=== PATIENT | female | born 1975 | race Two or more races ===

== ENCOUNTER 2019-04-16 18:08 | Emergency (ER) | payer OTHER ==
[2019-04-16] MEDS ORDERED: CYCLOBENZAPRINE 10 MG TABLET PO STA (19:02)
[2019-04-16] MEDS ORDERED: MELOXICAM 7.5 MG TABLET PO STA (19:02)
--- NOTE | 2019-04-16 19:14 | ED Physician Documentation ---
History of Present Illness - Stated complaint Stated Complaint: LEFT SHOULDER PX - Chief complaint Chief Complaint: Trauma Ext - History obtained from History obtained from: Patient, Family - History of Present Illness Timing: How many weeks ago (1) Pain level max: 8 Pain level now: 6 - Additonal information Additional information: L clavicle pain x 1 week. no injury. She does work in a [employer] and does regularly hold a phone in between her shoulder and her ear when she is typing on a keyboard and talking on the phone. She does not recall any heavy lifting. No numbness or tingling. Pain is not on the shoulder. It is rather on the sternoclavicular head of the sternocleidomastoid muscle. No fevers. No falls. Worse with movement and better with rest Review of Systems Constitutional: denies: Fever, Chills Respiratory: denies: Cough GI: denies: Nausea, Vomiting, Diarrhea Skin: denies: Rash Musculoskeletal: denies: Back pain Neurologic: denies: Headache PD PAST MEDICAL HISTORY - Past Medical History Past Medical History: No - Past Surgical History Past Surgical History: No - Present Medications Home Medications: Ambulatory Orders Medication Instructions Recorded Confirmed Cyclobenzaprine [Flexeril] 10 mg PO TID PRN #20 tablet 04/16/19 Hydrocodone/Acetaminophen 1 - 2 each PO Q6H PRN #14 tablet 04/16/19 [Hydrocodon-Acetaminophen 5-325] Meloxicam [Mobic] 15 mg PO DAILY PRN #20 tablet 04/16/19 - Allergies Allergies/Adverse Reactions: Allergies Allergy/AdvReac Type Severity Reaction Status Date / Time No Known Drug Allergies Allergy Verified 04/16/19 18:18 - Living Situation Living Situation: reports: With family Living Arrangement: reports: At home - Social History Does the pt have substance abuse?: No PD ED PE NORMAL - Vitals Vital signs reviewed: Yes - General General: Alert and oriented X 3, No acute distress - HEENT HEENT: Moist mucous membranes - Neck Neck: Supple, no meningeal sign - Cardiac Cardiac: RRR - Respiratory Respiratory: No respiratory distress, Clear bilaterally - Back Back: No CVA TTP - Derm Derm: Warm and dry - Extremities Extremities: Other (L clavicle - Tender to palpation over the medial aspect of the clavicle. There is no deformity or swelling. She is also tender along the sternoclavicular head of the sternocleidomastoid muscle. No tenderness over the shoulder. No pain with passive range of motion. Neurovascularly intact.) - Neuro Neuro: Alert and oriented X 3 Results - Vitals Vitals: Vital Signs - 24 hr 04/16/19 04/16/19 18:18 20:15 Temperature 36.9 C 37.2 C Heart Rate 80 86 Respiratory 15 20 Rate Blood Pressure 132/95 H 122/76 O2 Saturation 98 96 Oxygen O2 Source Room air - Rads (name of study) L clavicle xray Radiology: Prelim report reviewed, EMP read contemporaneously, See rad report (normal.) PD MEDICAL DECISION MAKING - ED course Complexity details: reviewed results, re-evaluated patient, considered differential, d/w patient ED course: Patient with what appears to be muscular pain of the sternocleidomastoid. Will place on muscle relaxants and pain medication for home. She is well-appearing, nontoxic. Afebrile. Likely muscle spasm. No evidence of carotid dissection, acute coronary syndrome, pulmonary embolus, tumors. Patient counseled regarding signs and symptoms for which I believe and urgent re-evaluation would be necessary. Patient with good understanding of and agreement to plan and is comfortable going home at this time This document was made in part using voice recognition software. While efforts are made to proofread this document, sound alike and grammatical errors may occur. Departure - Departure Disposition: 01 Home, Self Care Clinical Impression: Neck muscle strain Qualifiers: Encounter type: initial encounter Qualified Code(s): S16.1XXA - Strain of muscle, fascia and tendon at neck level, initial encounter Condition: Good Instructions: ED Sprain Strain Neck Follow-Up: your,doctor within 1 week [Other] Prescriptions: Cyclobenzaprine [Flexeril] 10 mg PO TID PRN #20 tablet PRN Reason: Spasms Hydrocodone/Acetaminophen [Hydrocodon-Acetaminophen 5-325] 1 - 2 each PO Q6H PRN #14 tablet PRN Reason: pain Meloxicam [Mobic] 15 mg PO DAILY PRN #20 tablet PRN Reason: pain Comments: The cause of your symptoms is unclear today. It appears to be muscular in nature. Follow-up closely with your doctor for further evaluation. Return if you worsen. Do not drink alcohol or drive while on narcotic pain medicine. Note that many narcotic pain relievers also contain tylenol/acetaminophen. Please ensure that your total dose of acetaminophen from all sources does not exceed 3 grams (3000mg) per day. You may constipated on this medication, take a stool softener such as "Colace" twice a day while you are on it. Also recommend a [id number] laxative such as senna or MiraLAX any day that you do not have a bowel movement. If you received narcotic pain medication in the emergency department, do not drive or operate machinery for the next 24 hours. Discharge Date/Time: 04/16/19 20:25
--- NOTE | 2019-04-16 19:44 | XRAY Report ---
Reason: L clavicle pain Procedure Date: 04/16/2019 Accession Number: [id number] / [id number] Procedure: XR - Clavicle LT CPT Code: FULL RESULT: EXAM: LEFT CLAVICLE RADIOGRAPHY EXAM DATE: 04/16/2019 07:23 PM. CLINICAL HISTORY: L clavicle pain. COMPARISON: None. TECHNIQUE: 2 views. FINDINGS: Bones: No acute fracture. Joints: No subluxations. Soft Tissues: Unremarkable. IMPRESSION: No acute radiographic abnormalities. [facility]
[2019-04-16] MEDS ORDERED: oxyCODONE 5 MG TABLET PO STA (20:01)
[2019-04-16 20:21] VITALS: BP 122/76
== END 2019-04-16 20:25 | disposition home or self-care (01) ==
LOC: ED 18:08
DX: S16.1XXA Strain of muscle, fascia and tendon at neck level, initial encounter (principal)
CPT/HCPCS: 73000; 99283; 99284; A9270